=== PATIENT | female | born 1995 ===

== ENCOUNTER 2017-07-09 21:20 | Emergency (ER) | payer OTHER ==
[2017-07-09 21:27] VITALS: BP 131/86; PULSE 104; RESP 20; TEMP 98.6; O2SAT 100
[2017-07-09] MEDS ORDERED: Tdap Vaccine 0.5 ml Vial (10-64 yrs) IM ONE ×2 (21:56→22:05)
[2017-07-09] MEDS ORDERED: Lidocaine 1% Inj (20ml) INFIL ONE (21:57)
[2017-07-09] MEDS ORDERED: Lidocaine Hydrochloride 5 ML INJ ONE (22:04)
[2017-07-09] MEDS ORDERED: Amoxicillin-Clav 875-125 mg Tab PO STA (23:26)
[2017-07-09] MEDS ORDERED: Amoxicillin-Clav 875-125 mg Tab PO ONE (23:29)
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
[2017-07-09] MEDS ORDERED: Bacitracin 500 Units/gm Oint Foilpak UD ONE (23:44)
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
== END 2017-07-10 00:39 | disposition home or self-care (01) ==
LOC: C.ER 21:20
DX: S02.2XXA Fracture of nasal bones, initial encounter for closed fracture (principal); S01.21XA Laceration without foreign body of nose, initial encounter; V49.9XXA Car occupant (driver) (passenger) injured in unspecified traffic accident, initial encounter